=== PATIENT | male | born 1990 | race African-American/Black ===

== ENCOUNTER 2021-04-28 22:23 | Emergency (ER) | payer SELFPAY ==
[~2021-04-28] VITALS: Ht 180.3 cm; Wt 72.7 kg
[~2021-04-28 22:23] MED LIST: NO HOME MEDICATIONS; VICODIN 5/300 PO
[2021-04-29 01:05] VITALS: TEMP 97.8
[2021-04-29 01:49] VITALS: BP 128/78; PULSE 76
== END 2021-04-29 01:49 | disposition home or self-care (01) ==
LOC: COL.ER 22:23
DX: F15.921 Other stimulant use, unspecified with intoxication delirium (principal); F22 Delusional disorders; F17.210 Nicotine dependence, cigarettes, uncomplicated